=== PATIENT | female | born 1965 | race Caucasian/White ===

== ENCOUNTER → 2016-10-27 | Outpatient (CLI) | payer OTHER ==
--- NOTE | 2016-10-27 11:23 | MA ---
Screening Digital Mammogram With iCAD Analysis Clinical Indications: Routine screening. Her paternal grandmother was diagnosed with breast cancer. Technique: Standard cephalocaudal and mediolateral oblique projections were obtained. This examinatio n was processed by the iCAD computer aided detection system. Comparison: Mammographic studies July 2013, June 2013, January 2011, January 2010, September 2008. Left breast ultrasound July 2013 which demonstrated benign simple cysts in the outer left breast. Breast density: Type B; Scattered fibroglandular densities. Findings: CAD was reviewed. Scattered benign-appearing calcifications are noted on the left. No spic ulated masses, suspicious calcifications or other signs of malignancy are identified. There has been no significant change in the appearance of either breast. Impression: Benign mammography, BI-RADS 2 Recommendation: Routine mammographic screening in one year as long as physical examination is negativ [email or web address]. Negative mammography should not preclude additional workup of a clinically suspicious finding. The patient's information is entered into a reminder system with a target due date for her next mammo gram.
== END ==
LOC: BMCIMAGING 10:12
DX: Z12.31 Encounter for screening mammogram for malignant neoplasm of breast (principal); Z80.3 Family history of malignant neoplasm of breast
CPT/HCPCS: G0202

== ENCOUNTER → 2017-12-28 | Outpatient (CLI) | payer OTHER | LOC: FIMAGING 12:35 | PROVIDERS: ATTEND Internal Medicine | DX: Z12.31 Encounter for screening mammogram for malignant neoplasm of breast (principal); Z80.3 Family history of malignant neoplasm of breast ==